=== PATIENT | female | born 1975 | race Caucasian/White ===

== ENCOUNTER 2022-01-29 10:29 | Day surgery (SDC) | payer OTHER ==
[~2022-01-29 10:29] MED LIST: Marcaine Mpf 0.5% Vial 30 Ml IJ ONE; XYLOCAINE 1% HCL 20 ML MDV ONE
[2022-01-29] MEDS ORDERED: Lactated Ringers 1,000 ML IV ONE (11:27)
[2022-01-29] MEDS ORDERED: CEFAZOLIN 2 GM-D5W BAG** 2 GM/50 ML ML IV ONE (11:55)
[2022-01-29] MEDS ORDERED: Transderm Scop 1.5MG Patch ONE (12:04)
[2022-01-29] MEDS ORDERED: Pepcid 20 MG VIAL IV ONE (12:04)
[2022-01-29] MEDS ORDERED: Reglan 10 MG/2 ML ONE (12:04)
[2022-01-29] MEDS ORDERED: Transderm Scop 1.5MG Patch TOP PRN (12:06)
[2022-01-29] MEDS ORDERED: Reglan 10 MG/2 ML IV ONE (12:06)
[2022-01-29] MEDS: Lactated Ringers 1,000 ML IV SCH ×2 (12:08→21:28)
[2022-01-29] MEDS: Pepcid 20 MG VIAL IV SCH ×3 (12:10→12:12)
[2022-01-29 12:18] LABS: ALBUMIN 3.3 g/dL (3.5-5.0); ANION GAP 8.2 MEQ/L (5-15); BILIRUBIN,TOTAL 0.7 mg/dL (0.2-1.3); Calcium 8.8 mg/dL (8.4-10.2); Creatinine 1 1.25 mg/dL (0.52-1.04); EST GLOMERULAR FILTRATION RATE 48.6 ML/MIN; Potassium 3.8 mmol/L (3.5-5.1); Total Protein 6.6 g/dL (6.3-8.2)
[2022-01-29] MEDS ORDERED: CEFAZOLIN 2 GM-D5W BAG** 2 GM/50 ML ML IV SCH (12:30)
[2022-01-29] MEDS ORDERED: DIPRIVAN 200 MG/20 ML IV ONE ×2 (12:32→12:36)
[2022-01-29] MEDS ORDERED: Decadron 4 MG INJ ONE ×2 (12:32→16:12)
[2022-01-29] MEDS ORDERED: Xylocaine-Mpf 2% 5 Ml Vial ONE (12:32)
[2022-01-29] MEDS ORDERED: Quelicin Fliptop 200 MG/10 ML ONE ×2 (12:32→12:34)
[2022-01-29] MEDS ORDERED: SUBLIMAZE 100 MCG/2 ML ONE ×3 (12:32→17:23)
[2022-01-29] MEDS ORDERED: Zofran 4 MG/2 ML VIAL ONE (12:43)
[2022-01-29] MEDS ORDERED: OFIRMEV 100 ML IV ONE (13:00)
[2022-01-29] MEDS ORDERED: Pre-Attached Lta Kit TP ONE (13:00)
[2022-01-29] MEDS ORDERED: Lactated Ringers 2,000 ML IV ONE (13:24)
[2022-01-29] MEDS ORDERED: DEXMEDETOMIDINE 80 MCG/20ML-NS IV ONE (13:25)
[2022-01-29] MEDS ORDERED: Ephedrine Sulfate 50 MG/ML ONE (13:43)
[2022-01-29] MEDS ORDERED: Naropin 0.5% 30 ML VIAL ONE (16:12)
--- NOTE | 2022-01-29 16:35 | XRAY ---
Indication: Right foot calcaneal osteotomy foot reconstruction. Intraoperative fluoroscopy provided for 6 minutes 8 seconds. 33 digital spot images submitted for interpretation ultimately demonstrates osteotomy calcaneus with 2 fixation screws and 1st/2nd tarsometatarsal fusion with intact hardware. Correlate with intraoperative findings/report.
--- NOTE | 2022-01-29 16:39 | XRAY ---
6 minutes and 8 seconds fluoroscopy time in surgery for foot reconstruction.
[2022-01-29] MEDS ORDERED: BREVIBLOC 100 MG/10 ML IV ONE (17:18)
[2022-01-29 18:11] LABS: INFLUENZA A NEGATIVE (NEGATIVE); INFLUENZA B NEGATIVE (NEGATIVE); RESPIRATORY SYNCTIAL VIRUS NEGATIVE (Negative); SARS-CoV-2 Xpert Express NEGATIVE (NEGATIVE)
[2022-01-29 20:49] LABS: Appearance CLEAR (CLEAR); Bilirubin NEGATIVE (NEGATIVE); Dipstick done @ ? MAIN LAB; Glucose NEGATIVE (NEGATIVE); Ketones NEGATIVE (NEGATIVE); Nitrite NEGATIVE (NEGATIVE); Ph 5.5 (5-6); Protein,Urine Dip NEGATIVE (Negative); RBC NEGATIVE Ery/ul (0-5); Specific Gravity 1.025 (1.005-1.025); Urobilinogen 0.2 mg/dL (0-1)
[2022-01-29 20:51] LABS: Mucus SLIGHT /HPF (NEGATIVE)
[2022-01-29] MEDS: NORCO 5/325 MG PO PRN (21:48)
[2022-01-29] MEDS ORDERED: XARELTO 10 MG TABLET PO ONE (22:00)
[2022-01-30] MEDS: NORCO 5/325 MG PO PRN ×2 (05:54→11:30)
--- NOTE | 2022-01-30 10:52 | OP ---
SURGERY DATE: 01/29/2022 SURGERY TIME: 1204 PREOPERATIVE DIAGNOSIS: 1. DIABETIC FOOT ULCER HISTORY. 2. DIABETES MELLITUS. 3. SARCOIDOSIS. 4. PES CAVUS UNILATERAL. 5. REARFOOT VARUS. 6. FOREFOOT VALGUS 7. WEAKNESS OF PERONEAL MUSCULATURE. POSTOPERATIVE DIAGNOSIS: 1. DIABETIC FOOT ULCER HISTORY. 2. DIABETES MELLITUS. 3. SARCOIDOSIS. 4. PES CAVUS UNILATERAL. 5. REAR FOOT VARUS. 6. FOREFOOT VALGUS 7. WEAKNESS OF PERONEAL MUSCULATURE. PROCEDURE: 1. BILATERAL CALCANEAL OSTEOTOMY. 2. RESECTION OF 5TH METATARSAL BASE. 3. PERONEUS BREVIS PENDING TRANSFER. 4. PERONEUS LONGUS TO PERONEUS BREVIS TENDON TRANSFER. 5. DORSIFLEXORY TARSOMETATARSAL JOINT ARTHRODESIS #1. SURGEON: Waqar Judge D.P.M. PORTRAIT CONSULTANT: None. ANESTHESIA: General plus a postoperative popliteal and saphenous block. HEMOSTASIS: A pressure dressing. ESTIMATED BLOOD LOSS: Less than 30 cc. MATERIALS: Deng 3.5 fully threaded screw and 3.5 fully threaded cannulated screw, two 6.5 mm headless compression screws measuring 40 and 65, and a ToggleLoc tendon transfer system as well as 2-0 Nylon, 3-0 PDS, and 3-0 Nylon. INJECTABLES: See anesthesia report for details. INDICATIONS FOR PROCEDURE: Vera is a very pleasant 46 y/o female who is well known to my service for a pes cavus deformity. She has suffered in the past multiple metatarsal fractures of the foot metatarsal secondary to her foot position. She does have an extensive medical history with newly diagnosed diabetes mellitus and initially patient was seen for an ulceration that developed on the styloid process of the plantar aspect of the right foot. Over the course of several weeks, we were able to heal this ulceration and patient had significant amount of pain with ambulation continuing on. MRI and bone scan was obtained demonstrating no osteomyelitis. However, the pain was so significant that patient opted to proceed with surgical intervention for correction of the cavus deformity. The patient does have an extensive medical history with Factor V Leiden, significant history of deep vein thrombosis as well as sarcoidosis with newly diagnosed diabetes mellitus and atrial fibrillation. The patient is on chronic anticoagulation with Xarelto. It is with that we had a discussion in regards to the risks, complications, and benefits of surgical intervention. The patient at this time is desperate to proceed due to the fact that she is unable to bear weight to the extremity without a significant amount of pain. The patient understands all risks, complications, and benefits including, but not limited to, delayed wound healing; delayed bone healing; non-wound healing; non-bone healing; possibility of under correction or over correction of deformity; possibility of need for surgical intervention at a later date. In patient's case, due to the Factor V Leiden and the positive history of deep vein thrombosis the possibility of an additional deep vein thrombosis or pulmonary embolism is high due to her recent history of newly diagnosed atrial fibrillation, anticoagulation will not be stopped for the procedure. It is with that we decided to proceed. DESCRIPTION OF PROCEDURE: The patient was brought into the OR. Placed on the OR table in the supine position at this time. A well-padded tourniquet was applied to the patient's right thigh and the tourniquet was set to 350 mm Hg if it was necessary to inflate during the procedure. At this time, the A Bump was placed under the patient's right hip to get the foot into appropriate position and the right lower extremity was prepped and draped in the typical sterile fashion. At this time, attention was directed under fluoroscopic guidance on a lateral view to see the lateral wall of the calcaneus where a distal plantar to proximal dorsal incision was made at the level of the skin being careful not to damage the sural nerve in the path and not violating the peroneal tendon sheaths at this level exposing the calcaneus. The calcaneus was then exposed. This was checked under a calcaneal axial view and on this calcaneal axial view, a wedge was planned utilizing 2 K-wires. The apex of the proximal wire was inserted relative to the longitudinal axis of the tibia and the distal wire was made perpendicular to the longitudinal axis in the midsection of the calcaneus. Following this, a 31 mm blade was utilized to cut through the calcaneus and excise the wedge. The wedge was then removed and the Diaz calcaneal osteotomy was fixated utilizing 6.5 mm cannulated partial variable compression screws. This was checked under fluoroscopic guidance and deemed to be in an adequate position and relatively rectus to valgus compared to its previous position in the varus orientation. Following this, attention was directed to the styloid process of the 5th metatarsal where recently healed ulcer was. At this time, an incision was made at the lateral aspect of the foot. The styloid process of the 5th metatarsal was resected. The peroneus brevis tendon was then removed from its insertion. The styloid process proximal end. A fiber loop was looped around the tendon and the tendon was inserted under tension with the foot held in a neutral position into the cuboid using a ToggleLoc. At this time, the peroneus longus tendon was then tenodesed under tension to the peroneus brevis tendon to improve the strength to the evertors of the foot. Following this, an incision was made at the dorsal aspect of the 1st tarsometatarsal joint. A dorsiflexory wedge was cut out of the 1st metatarsal base elevating the 1st metatarsal slightly over the lesser metatarsals in order to correct for the forefoot valgus component to the patient's deformity. The joint surfaces were curetted well of cartilage. The site was flushed and a 2 mm drill bit was utilized to fenestrate the surface of the joint. Two crossing 3.5 mm screws were utilized to fixate the 1st tarsometatarsal joint in a dorsiflexed position. Following this, the foot was loaded on a foot plate and checked under fluoroscopic guidance for correction of the deformity. At this time, it does appear that there was correction to the point where the patient did have a slightly flat foot in comparison to her previous deformity. Any gaps were filled in with cancellous bone chips and packed into the site. Following this, 2-0 Vicryl was utilized to coapt the subcutaneous skin edges in a simple interrupted type fashion. Then, the skin edges were then coapted utilizing 3-0 Nylon in a horizontal mattress type fashion. A pressure dressing consisting of Betadine, Adaptic, 4 X 4, Kerlex, and Dandy was applied and then a well-padded posterior splint with sugar tongue was applied to the patient's right foot with the foot orthogonal relative to the longitudinal access of the leg. Following the procedure, final x-rays were taken. The patient was then provided a popliteal and saphenous block. The patient was then reversed from anesthesia and returned to the PACU with vital signs stable and vascular status intact. The patient handled the procedure as well as the anesthesia without significant complication. Postoperative orders as indicated in the patient's discharge chart.
[2022-01-30 11:48] VITALS: BP 110/66; PULSE 103; O2SAT 97
== END 2022-01-30 13:10 | disposition home or self-care (01) ==
LOC: SDC 10:29 → UNDOADMOB 18:18 → MED SURG 18:18 → SDC 01-30 13:10
PROVIDERS: ATTEND Podiatrist Foot & Ankle Surgery
DX: E11.621 Type 2 diabetes mellitus with foot ulcer (principal); E11.42 Type 2 diabetes mellitus with diabetic polyneuropathy; D86.9 Sarcoidosis, unspecified; Q66.71 Congenital pes cavus, right foot; G83.11 Monoplegia of lower limb affecting right dominant side; R26.2 Difficulty in walking, not elsewhere classified; M79.671 Pain in right foot; I48.91 Unspecified atrial fibrillation
CPT/HCPCS: 0241U; 27691; 28288; 28300; 28740; 36415; 73630; 76000; 76937; 80053; 81001; 81025; 82947; 87070; 87086; C1713; G0378; 64450; 76942; J0330; J0690; J1100; J2405; J2704; J2795; J3010; A9270-GY

== ENCOUNTER 2022-05-03 06:06 | Day surgery (SDC) | payer OTHER ==
[2022-05-03] MEDS ORDERED: XYLOCAINE 1% HCL 20 ML MDV ONE (06:22)
[2022-05-03] MEDS ORDERED: Lactated Ringers 1,000 ML IV ONE (06:48)
[2022-05-03] MEDS ORDERED: CEFAZOLIN 2 GM-D5W BAG** 2 GM/50 ML ML IV ONE (06:48)
[2022-05-03] MEDS ORDERED: Lactated Ringers 1,000 ML IV SCH (07:00)
[2022-05-03] MEDS ORDERED: CEFAZOLIN 2 GM-D5W BAG** 2 GM/50 ML ML IV SCH (07:00)
[2022-05-03 08:26] VITALS: BP 116/57; PULSE 92; O2SAT 99
--- NOTE | 2022-05-03 08:52 | XRAY ---
Indication: Hardware removal right foot. Intraoperative fluoroscopy provided for 39 seconds. 2 digital spot images submitted for interpretation demonstrates single intact 1st tarsometatarsal screw, 2nd cuneiform orthopedic button, and partially visualized 2 calcaneal screws. Correlate with intraoperative findings.
--- NOTE | 2022-05-03 11:05 | OP ---
SURGERY DATE/TIME: 05/03/2022 0720 PREOPERATIVE DIAGNOSES: 1) Painful retained hardware right foot. 2) Pain right foot. POSTOPERATIVE DIAGNOSES: 1) Painful retained hardware right foot. 2) Pain right foot. PROCEDURE: Removal of painful hardware right foot. SURGEON: Waqar Judge DPM. ANALYTICAL CHEMISTRY TEACHER: None. ANESTHESIA: Local. HEMOSTASIS: Pressure dressing. ESTIMATED BLOOD LOSS: Less than 5 cc. INJECTABLES: 30 cc of a 1:1 mixture of 1% lidocaine plain and 0.5% bupivacaine plain injected in a Sewell block-type fashion. INDICATION FOR SURGERY: Vera is a very pleasant 46-year-old female very well known to my service for a reconstruction of a cavus-type foot and osteomyelitis to the fifth metatarsal where a dorsiflexory first tarsometatarsal joint arthrodesis Diaz osteotomy, a Steindler stripping, a peroneus longus tenotomy and a peroneus brevis tendon transfer to the cuboid and a resection of the styloid of the fifth metatarsal was performed. Following this procedure, the patient was progressing without significant complication. However once transitioning into a pair of shoes she did have some complaints of pain underneath the arch of her foot. On clinical inspection there was a prominence and this did correlate with the proximal to distal screw associated with the tarsometatarsal joint arthrodesis. The patient is approximately three months from the date of the procedure and has made significant improvement with no loss of fixation at this time or backing out of hardware. At this time the patient wishes to proceed with a removal of hardware under local anesthetic in order to ambulate without any pain. She understands all the risks, complications and benefits of the procedure including but not limited to infection, hematoma, seroma, possibility of delayed wound healing, nonwound healing and possibility of pain following the procedure. The patient understands all of these risks and wishes and wishes to proceed. DESCRIPTION OF PROCEDURE AND FINDINGS: The patient is brought into the OR and placed on the OR table in the supine position. At this time attention local anesthesia was administered in a mini-Sewell type block consisting of 30 cc to the right foot. The right foot was then prepped and draped in the typical sterile fashion and lowered onto the surgical field. At this time under fluoroscopic guidance, the 3.5 mm fully threaded cannulated screw was identified and a K-wire was introduced from a proximal, dorsal to plantar distal orientation into the bore of the cannula. Following this, a 15 blade was utilized to make an incision approximately 1.5 to 2 cm in length. Careful dissection was carried down to the level of the bone making sure not to damage any neurovascular structures along the way. The screw head was identified, determined to be a T10 route driver and was removed from the surgical site and handed off the field. At this time copious amounts of sterile saline with Iodine were used to flush the surgical site. The site was coapted utilizing 2-0 Vicryl in a simple buried interrupted-type fashion and the skin was coapted utilizing a 3-0 Nylon in horizontal mattress-type fashion. Following this a dressing consisting of Betadine, Adaptic, 4x4, Kerlix and ROSA was applied to the patient's right lower extremity. The patient then was returned to the preoperative area with vascular status intact and vital signs stable. Postoperative orders as indicated in the patient's discharge chart.
--- NOTE | 2022-05-06 11:53 | XRAY ---
39 seconds of fluoroscopy was used in surgery for hardware removal of the right foot.
== END 2022-05-03 08:40 | disposition home or self-care (01) ==
LOC: SDC 06:06
PROVIDERS: ATTEND Podiatrist Foot & Ankle Surgery
DX: T84.84XA Pain due to internal orthopedic prosthetic devices, implants and grafts, initial encounter (principal); M79.671 Pain in right foot; Z47.2 Encounter for removal of internal fixation device
CPT/HCPCS: 20680; 73630; 76000; 81025; J0690